=== PATIENT | female | born 1975 | race Caucasian/White ===

== ENCOUNTER 2019-11-12 11:35 | Emergency (ER) | payer BC, OTHER ==
--- OUTSIDE RECORDS SUMMARY | 2019-11-12 11:52 | XMS REPORT | Summary of Care ---
:1975 Author Organization [facility] Address [address] [place] [address] Care Team Providers Name Role Phone Earl Smith Primary Care Provider Reason for Visit Reason Comments Medication Refill needs asthma meds refilled URI started friday or friday, started with sore throat, sinus and chest congestion, low grade fever, clear phlegm Encounter Details Date Type Department Care Team Description 10/08/2019 Office Visit Martin Gasper Sheehan, Uncomplicated severe persistent asthma (Primary Dx); Practice MD Acute URI [address] [place] [address] [place] [address] [phone] Allergies Active Allergy Reactions Severity Noted Date Comments Aspirin Respiratory Reaction 06/13/2008 Ciprofloxacin Hcl Hives 04/17/2018 Clarithromycin Hives 06/13/2008 Doxycycline Hives, GI Reaction 09/01/2015 Ibuprofen 09/27/2008 Triggered asthma Morphine Respiratory Reaction 06/13/2008 Cefdinir Hives Medium 02/03/2014 Penicillins Hives 06/13/2008 documented as of this encounter (statuses as of 10/08/2019) Medications Medication Sig Dispensed Refills Start End Date Status Date TYLENOL 8 HOUR 650 Take by mouth 0 Active MG Oral Tab CR NEEDED diphenhydrAMINE Take 25 mg by 0 Active (BENADRYL) 25 MG mouth. Oral Cap Omeprazole 40 MG Take 1 Cap by 0 Active Oral CAPSULE mouth DAILY DELAYED RELEASE NEEDED. albuterol-ipratropi INHALE THE 360 mL 2 Active um (DUO-NEB) CONTENTS OF 1 7 0.5-2.5 (3) MG/3ML VIAL VIA Inhalation NEBULIZER 4 SolutionIndications TIMES DAILY : Moderate persistent asthma with acute exacerbation EPINEPHrine 1 Device by 1 Each 0 Active (EPIPEN) 0.3 Injection route 8 MG/0.3ML Injection DIRECTED. Solution Anaphylaxis Auto-injector Spacer/Aero Chamber 2 INHL by Does 1 Each 0 Active Mouthpiece Does not not apply route 8 apply Misc TWICE DAILY. VENTOLIN HFA 108 INHALE 2 PUFFS 18 g 4 Active (90 Base) MCG/ACT BY MOUTH EVERY 8 Inhalation Aero 6 HOURS Soln NEEDED FOR WHEEZE nystatin TAKE 5 ML BY 280 mL 0 Active (MYCOSTATIN) [id number] MOUTH 4 TIMES 9 UNIT/ML DAILY Mouth/Throat Suspension albuterol 3 mL by 150 mL 1 Active (PROVENTIL, Inhalation-SVN 0 VENTOLIN) (2.5 route TWICE MG/3ML) 0.083% DAILY. Inhalation Nebu SolnIndications: Uncomplicated severe persistent asthma budesonide-formoter Take 2 INHL by 1 Inhaler 4 Active ol fumarate inhalation 0 (SYMBICORT) 160-4.5 TWICE DAILY. MCG/ACT Inhalation AerosolIndications: Uncomplicated severe persistent asthma Albuterol Sulfate Take 1-2 INHL 1 Each 5 Active (PROAIR RESPICLICK) by inhalation 0 108 (90 Base) FOUR TIMES MCG/ACT Inhalation DAILY NEEDED AEROSOL POWDER, (asthma). BREATH ACTIVATEDIndication s: Uncomplicated severe persistent asthma montelukast Take 1 Tab by 90 Tab 1 Active (SINGULAIR) 10 MG mouth DAILY. 0 Oral TabIndications: Uncomplicated severe persistent asthma albuterol INHALE THE 150 mL 1 10/08/19 Discontinued (PROVENTIL, CONTENTS OF 1 5 20 (Reorder) VENTOLIN) (2.5 VIAL VIA MG/3ML) 0.083% NEBULIZER TWICE Inhalation Nebu DAILY Soln montelukast Take 1 Tab by 30 Tab 5 10/08/19 Discontinued (SINGULAIR) 10 MG mouth DAILY. 7 20 (Patient stopped Oral the medication) TabIndications: Moderate persistent asthma with acute exacerbation triamcinolone Apply 2 x a day 45 g 0 10/08/19 Discontinued (KENALOG,ARISTOCORT 7 20 (Therapy ) 0.1 % Apply Completed) externally Cream Albuterol Sulfate Take 1-2 INHL 1 Each 5 10/08/19 Discontinued (PROAIR RESPICLICK) by inhalation 8 20 (Reorder) 108 (90 Base) FOUR TIMES MCG/ACT Inhalation DAILY NEEDED AEROSOL POWDER, (asthma). BREATH ACTIVATED SYMBICORT 160-4.5 INHALE 2 PUFFS 1 Inhaler 4 10/08/19 Discontinued MCG/ACT Inhalation BY MOUTH TWICE 9 20 (Reorder) AerosolIndications: DAILY Uncomplicated severe persistent asthma Clindamycin HCl 300 Take 1 Cap by 21 Cap 0 10/08/19 Discontinued MG Oral Cap mouth THREE 9 20 (Therapy TIMES DAILY. Completed) documented as of this encounter (statuses as of 10/08/2019) Active Problems Problem Noted Date Severe persistent asthma 11/17/2014 History of Nonallergic Rhinitis 09/27/2008 Overview: 06/28/2008, Dr. Mckeon, Skin testing to inhalant and environmental allergens reveals no evidence of hypersensitivity on skin prick testing. Milk, egg white , and onion are negative as well. BMI 38.0-38.9,adult documented as of this encounter (statuses as of 10/08/2019) Resolved Problems Problem Noted Date Resolved Date Oral candidiasis 11/17/2014 10/16/2015 Moderate persistent asthma without complication 06/28/2008 10/16/2015 Overview: With history of recurrent exacerbations on long-term systemic prednisone. Avoid irritants such as strong odors and fumes. documented as of this encounter (statuses as of 10/08/2019) Immunizations Name Administration Dates Next Due Influenza (IM) Preservative Free 07/03/2018, 07/11/2014, 09/14/2013, 06/27/2012, 06/22/2010, 08/22/2009 Influenza Vaccine Whole 10/02/2016 TDAP Vaccine 12/14/2008 documented as of this encounter Social History Tobacco Use Types Packs/Day Years Used Date Never Smoker Smokeless Tobacco: Never Used Alcohol Use Drinks/Week oz/Week Comments No 0 Standard drinks or equivalent 0.0 Sex Assigned at Date Recorded Not on file Job Start Date Occupation Industry Not on file Not on file Not on file Travel History Travel Start Travel End No recent travel history available. documented as of this encounter Last Filed Vital Signs Vital Sign Reading Time Taken Comments Blood Pressure 118/68 10/08/2019 9:01 AM EST Pulse 78 10/08/2019 9:01 AM EST Temperature 36.4 10/08/2019 9:01 AM EST C (97.5 F) Respiratory Rate 20 10/08/2019 9:01 AM EST Oxygen Saturation 97% 10/08/2019 9:01 AM EST Inhaled Oxygen Concentration - - Weight 105 kg (231 lb 6.4 oz) 10/08/2019 9:01 AM EST Height 160 cm (5' 3") 10/08/2019 9:01 AM EST Body Mass Index 40.99 10/08/2019 9:01 AM EST documented in this encounter Progress Notes Gasper Truong MD - 10/08/2019 8:40 AM EST PATIENT: Ludmila Siegel : 1975 DATE OF SERVICE: 10/08/2019 CHIEF COMPLAINT: Chief Complaint Patient presents with Medication Refill needs asthma meds refilled URI started friday or friday, started with sore throat, sinus and chest congestion, low grade fever, clear phlegm Subjective HISTORY OF PRESENT ILLNESS: Ludmila Siegel is a 43-y.o. female. 43 y/o presents for medication refills for her chronic "severe persistent asthma ". Has a URI today but states on a typical day, she still uses her rescue inhaler 2-4 times per day with up to 6 times per day when ill. Being put on Symbacort improved her symptoms greatly but still has issues. Otherwise,states she is doing well except for the cold. Her ears feel stuffy today and would like them checked. Denies F/C/N/V. Has not really taken anything for the cold except occasional DayQuil. Past Medical History: Diagnosis Date Asthma 06/28/2008 With history of recurrent exacerbations on long-term systemic prednisone. Avoid irritants such as strong odors and fumes. BMI 38.0-38.9,adult Eosinophilic esophagitis 2012 EGD Fatty liver History of Nonallergic Rhinitis 09/27/2008 06/28/2008, Dr. Mckeon, Skin testing to inhalant and environmental allergens reveals no evidenceof hypersensitivity on skin prick testing. Milk, egg white, and onion are negative as well. IBS (irritable bowel syndrome) ??? Family History Problem Relation Age of Onset Arthritis Father Hypertension Father High Cholesterol Father Psoriasis Father Colon Cancer Maternal Grandmother Heart Unknown GP late 40s Current Outpatient Medications Medication Sig albuterol (PROVENTIL, VENTOLIN) (2.5 MG/3ML) 0.083% Inhalation Nebu Soln INHALE THE CONTENTS OF 1 VIAL VIA NEBULIZER TWICE DAILY Albuterol Sulfate (PROAIR RESPICLICK) 108 (90 Base) MCG/ACT Inhalation AEROSOL POWDER, BREATHACTIVATED Take 1-2 INHL by inhalation FOUR TIMES DAILY NEEDED (asthma). albuterol-ipratropium (DUO-NEB) 0.5-2.5 (3) MG/3ML Inhalation Solution INHALE THE CONTENTS OF1 VIAL VIA NEBULIZER 4 TIMES DAILY diphenhydrAMINE (BENADRYL) 25 MG Oral Cap Take 25 mg by mouth. EPINEPHrine (EPIPEN) 0.3 MG/0.3ML Injection Solution Auto-injector 1 Device by Injection route DIRECTED. Anaphylaxis nystatin (MYCOSTATIN) 766137 UNIT/ML Mouth/Throat Suspension TAKE 5 ML BY MOUTH 4 TIMES DAILY Omeprazole 40 MG Oral CAPSULE DELAYED RELEASE Take 1 Cap by mouth DAILY NEEDED. Spacer/Aero Chamber Mouthpiece Does not apply Misc 2 INHL by Does not apply route TWICE DAILY. SYMBICORT 160-4.5 MCG/ACT Inhalation Aerosol INHALE 2 PUFFS BY MOUTH TWICE DAILY TYLENOL 8 HOUR 650 MG Oral Tab CR Take by mouth NEEDED VENTOLIN HFA 108 (90 Base) MCG/ACT Inhalation Aero Soln INHALE 2 PUFFS BY MOUTH EVERY 6 HOURSAS NEEDED FOR WHEEZE No current facility-administered medications for this visit. Allergies Allergen Reactions Omnicef [Cefdinir] Hives Aspirin Respiratory Reaction Ciprofloxacin Hcl Hives Clarithromycin Hives Doxycycline Hives and GI Reaction Ibuprofen Triggered asthma Morphine Respiratory Reaction Penicillins Hives Social History Socioeconomic History Marital status: Spouse name: Not on file Number of children: Not on file Years of education: Not on file Highest education level: Not on file Occupational History Not on file Social Needs Financial resource strain: Not on file Food insecurity Worry: Not on file Inability: Not on file Transportation needs Medical: Not on file Non-medical: Not on file Tobacco Use Smoking status: Never Smoker Smokeless tobacco: Never Used Substance and Sexual Activity Alcohol use: No Alcohol/week: 0.0 standard drinks Drug use: No Sexual activity: Yes Partners: Male Lifestyle Physical activity Days per week: Not on file Minutes per session: Not on file Stress: Not on file Relationships Social connections Talks on phone: Not on file Gets together: Not on file Attends adventist service: Not on file Active member of club or organization: Not on file Attends meetings of clubs or organizations: Not on file Relationship status: Not on file Intimate partner violence Fear of current or ex partner: Not on file Emotionally abused: Not on file Physically abused: Not on file Forced sexual activity: Not on file Other Topics Concern Back Care Not Asked Bike Helmet Not Asked Blood Transfusions Not Asked Caffeine Concern Not Asked Exercise Not Asked Hobby Hazards Not Asked International Travel Not Asked Service Not Asked Occupational Exposure Not Asked Seat Belt Not Asked Self-Exams Not Asked Sleep Concern Not Asked Special Diet Not Asked Stress Concern Not Asked Weight Concern Not Asked Social History Narrative The patient lives in [place] with her and son and works as an fleet administrative assistant at [employer]. They have two dogs, cat, and a horse at home. No tobacco use. Over the last 2 weeks, have you been feeling down, depressed, anxious, or hopeless?: 0 Over the past 2 weeks, have you felt little interest or pleasure in doing things ?: 0 REVIEW OF SYSTEMS: Review of Systems Constitutional: Negative for chills, diaphoresis, fever, malaise/fatigue and weight loss. HENT: Positive for congestion, ear pain and sore throat. Negative for ear discharge, hearing loss, nosebleeds, sinus pain and tinnitus. Eyes: Negative for blurred vision, double vision, pain and discharge. Respiratory: Positive for shortness of breath and wheezing. Negative for cough and sputum production. Cardiovascular: Negative for chest pain, palpitations and leg swelling. Gastrointestinal: Negative for abdominal pain, blood in stool, constipation, diarrhea, heartburn, nausea and vomiting. Genitourinary: Negative for dysuria, flank pain, frequency and urgency. Musculoskeletal: Negative for falls, joint pain and myalgias. Skin: Negative for itching and rash. Neurological: Negative for dizziness, tingling, sensory change, loss of consciousness, weakness and headaches. Psychiatric/Behavioral: Negative for depression and suicidal ideas. The patient is not nervous/anxious and does not have insomnia. Objective PHYSICAL EXAM: VITALS: BP 118/68 (BP Location: Right arm, Patient Position: Sitting) | Pulse 78 | Temp 97.5 F (36.4 C) (Tympanic) | Resp 20 | Ht 5' 3" (1.6 m) | Wt 231 lb 6.4 oz (105 kg) | SpO2 97% | BMI 40.99 kg/m Body mass index is 40.99 kg/m. Physical Exam Vitals signs and nursing note reviewed. Constitutional: General: She is not in acute distress. Appearance: Normal appearance. She is well-developed and normal weight. She is not ill-appearing,toxic-appearing or diaphoretic. HENT: Head: Normocephalic and atraumatic. Right Ear: Tympanic membrane and ear canal normal. Left Ear: Tympanic membrane and ear canal normal. There is no impacted cerumen. Nose: Congestion and rhinorrhea present. Mouth/Throat: Mouth: Mucous membranes are moist. Pharynx: Oropharynx is clear. No oropharyngeal exudate or posterior oropharyngeal erythema. Eyes: General: No scleral icterus. Right eye: No discharge. Left eye: No discharge. Extraocular Movements: Extraocular movements intact. Conjunctiva/sclera: Conjunctivae normal. Pupils: Pupils are equal, round, and reactive to light. Neck: Musculoskeletal: Normal range of motion. Thyroid: No thyromegaly. Cardiovascular: Rate and Rhythm: Normal rate and regular rhythm. Heart sounds: Normal heart sounds. No murmur. No friction rub. No gallop. Pulmonary: Effort: Pulmonary effort is normal. No respiratory distress. Breath sounds: Wheezing (in the apices at end-expiratory) present. No rhonchi or rales. Abdominal: General: Abdomen is flat. Bowel sounds are normal. There is no distension. Palpations: Abdomen is soft. Tenderness: There is no abdominal tenderness. There is no guarding or rebound. Musculoskeletal: General: No tenderness. Lymphadenopathy: Cervical: No cervical adenopathy. Neurological: Mental Status: She is alert. ASSESSMENT / IMPRESSION: ICD-9-CM ICD-10-CM 1. Uncomplicated severe persistent asthma 493.90 J45.50 budesonide-formoterol fumarate (SYMBICORT) 160-4.5 MCG/ACT Inhalation Aerosol 1. Uncomplicated severe persistent asthma Refilled medication but will also add Singulair to see if we can decrease use of the rescue inhaler and stabilize lungs. She states she has been on this before with limited results. - albuterol (PROVENTIL, VENTOLIN) (2.5 MG/3ML) 0.083% Inhalation Nebu Soln; 3 mL by Inhalation-SVN route TWICE DAILY. Dispense: 150 mL; Refill: 1 - budesonide-formoterol fumarate (SYMBICORT) 160-4.5 MCG/ACT Inhalation Aerosol ; Take 2 INHL by inhalation TWICE DAILY. Dispense: 1 Inhaler; Refill: 4 - Albuterol Sulfate (PROAIR RESPICLICK) 108 (90 Base) MCG/ACT Inhalation AEROSOL POWDER, BREATH ACTIVATED; Take 1-2 INHL by inhalation FOUR TIMES DAILY NEEDED (asthma). Dispense: 1 Each; Refill: 5 - montelukast (SINGULAIR) 10 MG Oral Tab; Take 1 Tab by mouth DAILY. Dispense: 90 Tab; Refill: 1 2. URI--Discussed use of NyQuil and DayQuil for symptom relief along with nasal saline. Pt verbalized understanding. Plan As above. Follow up with me or Dr. Smith in about 30 days to discuss benefit or lack of response to the Singulair. Author: Gasper Truong MD 10/08/2019 09:13 documented in this encounter Plan of Treatment Health Maintenance Due Date Last Done Comments PNEUMOCOCCAL 0-64 YRS (1 of 1982 1 - PPSV23) PAP SMEAR 06/22/2013 06/22/2010, 01/11/2010, 01/11/2002, Additional history exists MAMMOGRAM (SCREENING) 2016 Colonoscopy 03/10/2017 03/10/2012, 03/05/2012 (Previously completed) DTaP/Tdap/Td Vaccines (2 - 12/14/2018 12/14/2008 Tdap) LIPID DISORDER SCREENING 02/03/2019 02/03/2014, 08/05/2013, 06/22/2010, Additional history exists DIABETES SCREENING 04/17/2019 04/17/2018, 11/21/2015, 07/17/2015, Additional history exists INFLUENZA VACCINE (#1) 2019 07/03/2018, 10/02/2016, 07/11/2014, Additional history exists DEPRESSION SCREENING 10/08/2020 10/08/2019 HEPATITIS A IMMUNIZATION Aged Out No longer eligible SERIES based on patient's age to complete this topic HPV IMMUNIZATION SERIES Aged Out No longer eligible based on patient's age to complete this topic MENINGOCOCCAL VACCINE IMM Aged Out No longer eligible based on patient's age to complete this topic documented as of this encounter Results Not on filedocumented in this encounter Visit Diagnoses Diagnosis Uncomplicated severe persistent asthma Acute URI Acute upper respiratory infections of unspecified site documented in this encounter Insurance Payer Benefit Plan / Subscriber ID Effective Dates Phone Address Type Group [facility] xxxxxxxxx 2018-Present [place] [employer] xxxxxxxxxxx 2007-Present [employer] (Home) [address] [phone] [place], [place] (Work) [id number] documented as of this encounter
--- NOTE | 2019-11-12 12:22 | ED ---
HPI Chest Pain - HPI Summary HPI Summary: 43 year old female presents with chest pain since last night. He states that the pain is in the center of her chest. today she felt like "muscle spasms" pain that radiated to her left shoulder. She denies any shortness of breath. She admits to nausea and indigestion but no vomiting. She she thought it was just GI related last night. She states that symptoms continued today. It has been pretty constant. States that it is a 3 out of 10. Has not taking anything for her symptoms. States she does have a history asthma. Denies a history of high blood pressure or diabetes. No family history of cardiac disease. She does not smoke. No drug use. No recent travel. is not on hormone therapy. Denies any palpitations. was sick a month ago. no cough. no wheezing or chest tightness. no pain or swelling in calf muscles. - History of Current Complaint Chief Complaint: EDChestWallPain Time Seen by Provider: 11/12/19 12:01 Hx Last Menstrual Period: 03/26/18 Pain Intensity: 3 - Allergy/Home Medications Allergies/Adverse Reactions: Allergies Allergy/AdvReac Type Severity Reaction Status Date / Time doxycycline Allergy Unknown Unknown Verified 11/12/19 11:42 Reaction Details aspirin Allergy Hives Verified 11/12/19 11:42 cefdinir [From Omnicef] Allergy Hives Verified 11/12/19 11:42 ciprofloxacin Allergy Hives Verified 11/12/19 11:42 clarithromycin [From Biaxin] Allergy Hives Verified 11/12/19 11:42 morphine Allergy Hives Verified 11/12/19 11:42 Penicillins Allergy Hives Verified 11/12/19 11:42 Home Medications: Home Medications Albuterol HFA INHALER* [Ventolin HFA Inhaler*] 2 puff INH Q4H PRN 02/17/15 [ History Confirmed 11/12/19] Acetaminophen TAB* [Tylenol TAB*] 1,000 tab PO Q4H PRN 11/12/15 [History Confirmed 11/12/19] Albuterol/Ipratropium NEB.YUVAL* [Duoneb (Albuterol 2.5 MG/Ipratropium 0.5 MG)] 1 neb INH Q6H PRN 11/12/19 [History Confirmed 11/12/19] Budesonide/Formote 160/4.5(NF) [Symbicort 160/4.5 (NF)] 2 puff INH BID 11/12/19 [History Confirmed 11/12/19] Calcium Carbonate CHEW TAB* [Tums*] 500 mg PO BID PRN 11/12/19 [History Confirmed 11/12/19] Omeprazole CAP(NF) [PriLOSEC CAP(NF)] 10 mg PO DAILY 11/12/19 [History Confirmed 11/12/19] PMH/Surg Hx/FS Hx/Imm Hx Endocrine/Hematology History: Denies: Hx Diabetes, Hx Thyroid Disease Cardiovascular History: Denies: Hx Congestive Heart Failure, Hx Hypertension Respiratory History: Reports: Hx Asthma Denies: Hx Chronic Obstructive Pulmonary Disease (COPD) GI History: Denies: Hx Ulcer History: Denies: Hx Renal Disease - Surgical History Surgery Procedure, Year, and Place: appendectomy - Immunization History Date of Tetanus Vaccine: unknown Infectious Disease History: No Infectious Disease History: Denies: Hx Clostridium Difficile, Hx Hepatitis, Hx Human Immunodeficiency Virus (HIV), Hx of Known/Suspected MRSA, Hx Shingles, Hx Tuberculosis, Hx Known/ Suspected VRE, Hx Known/Suspected VRSA, History Other Infectious Disease, Traveled Outside the [place] in Last 30 Days - Family History Known Family History: Positive: Hypertension Negative: Cardiac Disease - Social History Alcohol Use: None Substance Use Type: Reports: None Smoking Status (MU): Never Smoked Tobacco Review of Systems Negative: Fever Positive: Chest Pain Negative: Shortness Of Breath, Cough All Other Systems Reviewed And Are Negative: Yes Physical Exam Triage Information Reviewed: Yes Vital Signs On Initial Exam: Initial Vitals Temp Pulse Resp BP Pulse Ox 98.4 F 91 18 141/75 99 11/12/19 11:35 11/12/19 11:35 11/12/19 11:35 11/12/19 11:35 11/12/19 11:35 Vital Signs Reviewed: Yes Appearance: Positive: Well-Appearing Skin: Positive: Warm, Dry Head/Face: Positive: Normal Head/Face Inspection Eyes: Positive: Normal, Conjunctiva Clear ENT: Positive: Pharynx normal Respiratory/Lung Sounds: Positive: Clear to Auscultation, Breath Sounds Present Cardiovascular: Positive: Normal, RRR Abdomen Description: Positive: Nontender, Soft Bowel Sounds: Positive: Present Musculoskeletal: Positive: Normal Neurological: Positive: Normal Psychiatric: Positive: Normal Procedures - Sedation Patient Received Moderate/Deep Sedation with Procedure: No Diagnostics - Vital Signs Vital Signs Temp Pulse Resp BP Pulse Ox 11/12/19 12:15 79 95 11/12/19 11:35 98.4 F 91 18 141/75 99 - Laboratory Result Diagrams: 11/12/19 12:20 11/12/19 12:20 Lab Statement: Any lab studies that have been ordered have been reviewed, and results considered in the medical decision making process. - Radiology chest Radiology Interpretation Completed By: Radiologist Summary of Radiographic Findings: IMPRESSION: #. No acute pulmonary or cardiac process evident. - EKG No standard instances Cardiac Rate: NL EKG Rhythm: Sinus Rhythm EKG Comparison: No Significant Change Summary of EKG Findings: sinus rhythm Re-Evaluation - Re-Evaluation First Eval Re-Evaluation Time: 13:26 Comment: discussed results, has minimial pain currently. Second Eval Re-Evaluation Time: 15:40 Comment: feeling better, second troponin .01 Chest Pain Course/Dx - Course Course Of Treatment: 43 year old female presents with chest pain since last night. He states that the pain is in the center of her chest. today she felt like "muscle spasms" pain that radiated to her left shoulder. She denies any shortness of breath. She admits to nausea and indigestion but no vomiting. She she thought it was just GI related last night. She states that symptoms continued today. It has been pretty constant. States that it is a 3 out of 10. Has not taking anything for her symptoms. States she does have a history asthma. Denies a history of high blood pressure or diabetes. No family history of cardiac disease. She does not smoke. No drug use. No recent travel. is not on hormone therapy. Denies any palpitations. was sick a month ago. no cough. no wheezing or chest tightness. no pain or swelling in calf muscles. On exam lungs auscultation. Heart regular rhythm. EKG shows sinus rhythm. wbc normal. troponin .01x2. crp normal. d-dimer neg. heart score 2. discussed that could be muscular vs GI. told follow up with primary. patient understand and agrees with plan. - Chest Pain Differential Diagnosis/HQI/PQRI: Angina, Chest Wall, Lower Respiratory Infection , Pulmonary Embolism - Diagnoses Provider Diagnoses: Atypical chest pain Discharge ED - Sign-Out/Discharge Documenting (check all that apply): Patient Departure - Discharge Plan Condition: Good Disposition: HOME Patient Education Materials: Noncardiac Chest Pain (ED) Referrals: Earl Smith MD [Primary Care Provider] - Additional Instructions: Take ibuprofen or Tylenol every 6 hours as needed for pain Follow up with primary within 5 days Return to ED if develop any new or worsening symptomss - Billing Disposition and Condition Condition: GOOD Disposition: Home
[2019-11-12 12:42] LABS: ABS Basophils 0.1 10^3/ul (0-0.2); ABS Eosinophils 0.5 10^3/ul (0-0.6); ABS Monocytes 0.6 10^3/ul (0-0.8); ABS Neutrophils 4.9 10^3/ul (1.5-7.7); Eosinophil % 5.9 %; Hematocrit 41 % (35-47); Hemoglobin 14.3 g/dL (12.0-16.0); Lymphocyte % 25.4 %; Mean Corpuscular HGB Conc 35 g/dL (31-36); Mean Corpuscular Hemoglobin 31 pg (27-31); Mean Corpuscular Volume 89 fL (80-97); Mean Platelet Volume 7.9 fL (7.4-10.4); Platelet Count 302 10^3/uL (150-450); Red Cell Distribution Width 13 % (10-15)
[2019-11-12 12:54] LABS: Troponin I 0.01 ng/mL (<0.03)
[2019-11-12 12:59] LABS: Albumin 4.6 g/dL (3.2-5.2); Albumin/Globulin Ratio 1.6 (1-3); BUN/Creatinine Ratio 19.8 (8-20); C Reactive Protein 6.65 mg/L (<8.01); Calcium 10.2 mg/dL (8.6-10.3); EGFR African American 87.6 (>60); EGFR Non-African American 72.4 (>60); Globulin 2.9 g/dL (2-4); Potassium 3.9 mmol/L (3.5-5.0); Total Bilirubin 0.5 mg/dL (0.2-1.0); Total Protein 7.5 g/dL (6.4-8.9)
[2019-11-12 15:47] VITALS: BP 124/84
== END 2019-11-12 15:46 | disposition home or self-care (01) ==
LOC: ED 11:35
DX: R07.89 Other chest pain (principal); J45.909 Unspecified asthma, uncomplicated; Z90.89 Acquired absence of other organs; Z79.899 Other long term (current) drug therapy; Z88.0 Allergy status to penicillin; Z88.1 Allergy status to other antibiotic agents; Z88.5 Allergy status to narcotic agent; Z88.8 Allergy status to other drugs, medicaments and biological substances
CPT/HCPCS: 36415; 71045; 80053; 83605; 83880; 84484; 85025; 85379; 86140; 93005; 99283